=== PATIENT | male | born 1965 | race Two or more races ===

== ENCOUNTER 2020-09-30 07:45 | Outpatient (CLI) | payer OTHER ==
[2020-10-05] MEDS ORDERED: LOSARTAN-HCTZ1 EAC2 PO (11:41)
== END 2020-09-30 08:04 | disposition home or self-care (01) ==
LOC: LAB 07:45
DX: Q55.22 Retractile testis (principal); N39.0 Urinary tract infection, site not specified; Z03.818 Encounter for observation for suspected exposure to other biological agents ruled out

== ENCOUNTER 2020-10-11 05:39 | Day surgery (SDC) | payer OTHER ==
[~2020-10-11 05:39] MED LIST: LOSARTAN-HCTZ1 EAC2 PO
[2020-10-11] MEDS ORDERED: LEVOFLOXACIN500 MG PO (08:56)
[2020-10-11] MEDS ORDERED: MOBIC7.5 M1 PO (08:57)
== END 2020-10-11 16:30 | disposition home or self-care (01) ==
LOC: CIR.AMB 05:39
PROVIDERS: ATTEND Surgery
DX: N43.2 Other hydrocele (principal); Q55.22 Retractile testis; Z20.822 Contact with and (suspected) exposure to COVID-19